=== PATIENT | male | born 1980 | race Caucasian/White ===

== ENCOUNTER 2020-12-12 15:12 | Emergency (ER) | payer MEDICAID ==
[~2020-12-12] VITALS: Ht 175.3 cm; Wt 63.6 kg
[2020-12-12 15:19] VITALS: BP 116/81
== END 2020-12-12 15:49 | disposition home or self-care (01) ==
LOC: ER 15:13
DX: Z48.01 Encounter for change or removal of surgical wound dressing (principal); R51.9 Headache, unspecified; F17.200 Nicotine dependence, unspecified, uncomplicated; F12.90 Cannabis use, unspecified, uncomplicated; F15.90 Other stimulant use, unspecified, uncomplicated; Z60.2 Problems related to living alone
CPT/HCPCS: 99283

== ENCOUNTER 2021-02-04 17:56 | Emergency (ER) | payer MEDICAID ==
[~2021-02-04] VITALS: Ht 172.7 cm; Wt 200.0 kg
[2021-02-04 18:28] VITALS: BP 147/78
== END 2021-02-04 18:30 ==
LOC: ER 17:56
DX: Z00.8 Encounter for other general examination (principal); M79.601 Pain in right arm; F12.90 Cannabis use, unspecified, uncomplicated; F15.90 Other stimulant use, unspecified, uncomplicated; Z60.2 Problems related to living alone
CPT/HCPCS: 99283